=== PATIENT | male | born 1980 | race Caucasian/White ===

== ENCOUNTER 2017-06-16 17:39 | Emergency (ER) | payer SELFPAY ==
[2014-06-20 16:54] VITALS: BP 119/57
== END 2017-06-16 17:40 | disposition left against medical advice (07) ==
LOC: ER 17:39
DX: S40.862A Insect bite (nonvenomous) of left upper arm, initial encounter (principal); Z53.21 Procedure and treatment not carried out due to patient leaving prior to being seen by health care provider; W57.XXXA Bitten or stung by nonvenomous insect and other nonvenomous arthropods, initial encounter; Y93.89 Activity, other specified; Y92.89 Other specified places as the place of occurrence of the external cause; Y99.8 Other external cause status

== ENCOUNTER 2018-08-22 08:40 | Emergency (ER) | payer SELFPAY ==
[~2018-08-22] VITALS: Ht 172.7 cm; Wt 74.8 kg
--- NOTE | 2018-08-22 09:11 | PHYS DOC ---
Past Medical History Past Medical History: No Pertinent History, CVA, [place] Past Surgical History: No Surgical History Alcohol Use: None Drug Use: None Adult General Chief Complaint Chief Complaint: RIB PAIN HPI HPI Patient is a 38 year old male with history of [place], CVA with left sided weakness who presents today complaining of bilateral rib pain for 2-3 weeks. Patient states his homeless and is very agitated right now. He is not giving us much information. He keeps demanding with give him a blanket right now. We are to coming down in the form give him a blanket as soon as we figure out what we can do for him. He is not giving us much information. A lot of information about getting is coming from the significant other in the room. Patient also has history of smoking. Review of Systems Review of Systems Constitutional: Denies fever or chills [] Eyes: Denies change in visual acuity, redness, or eye pain [] HENT: Denies nasal congestion or sore throat [] Respiratory: Reports bilateral rib pain. Denies cough or shortness of breath [] Cardiovascular: No additional information not addressed in HPI [] GI: Denies abdominal pain, nausea, vomiting, bloody stools or diarrhea [] : Denies dysuria or hematuria [] Musculoskeletal: Denies back pain or joint pain [] Integument: Denies rash or skin lesions [] Neurologic: Denies headache, focal weakness or sensory changes [] All other systems were reviewed and found to be within normal limits, except as documented in this note. Current Medications Current Medications Current Medications Medications (Trade) Dose Ordered Sig/[facility] Start Time Stop Time Status Last Admin Dose Admin Aspirin (Jayla Aspirin) 325 mg 1X ONCE 08/22/18 09:15 08/22/18 09:16 DC 08/22/18 09:15 325 MG Cyclobenzaprine HCl (Flexeril) 10 mg 1X ONCE 08/22/18 09:15 08/22/18 09:16 DC 08/22/18 09:15 10 MG Allergies Allergies Allergies Coded Allergies Type Severity Reaction Last Updated Verified Penicillins Allergy Intermediate 08/22/18 Yes morphine Allergy Intermediate 08/22/18 Yes Physical Exam Physical Exam Constitutional: Well developed, well nourished, no acute distress, non-toxic appearance. [] HENT: Normocephalic, atraumatic, bilateral external ears normal, oropharynx moist, no oral exudates, nose normal. [] Eyes: PERRLA, EOMI, conjunctiva normal, no discharge. [] Neck: Normal range of motion, no tenderness, supple, no stridor. [] Cardiovascular: Old healed surgical incision noted midline chest. Heart rate regular rhythm, no murmur [] Lungs & Thorax: Bilateral breath sounds clear to auscultation, reproducible pain on palpation of bilateral ribs diffusely. Abdomen: Bowel sounds normal, soft, no tenderness, no masses, no pulsatile masses. [] Skin: Warm, dry, no erythema, no rash. [] Back: No tenderness, no CVA tenderness. [] Extremities: No tenderness, no cyanosis, no clubbing, ROM intact, no edema. Slight weakness noted on the left upper extremity from a previous stroke Neurologic: Alert and oriented X 3, normal motor function, normal sensory function, no focal deficits noted. [] Psychologic: Affect normal, judgement normal, mood normal. [] Current Patient Data Vital Signs Vital Signs Date Time Temp Pulse Resp B/P (MAP) Pulse Ox O2 Delivery O2 Flow Rate FiO2 08/22/18 09:50 69 18 110/60 (77) 99 Room Air 08/22/18 08:50 97.6 97.6 Lab Values Laboratory Tests Test 08/22/18 09:20 08/22/18 11:33 White Blood Count 6.5 x10^3/uL (4.0-11.0) Red Blood Count 5.04 x10^6/uL (4.30-5.70) Hemoglobin 15.8 g/dL (13.0-17.5) Hematocrit 46.6 % (39.0-53.0) Mean Corpuscular Volume 93 fL (79-100) Mean Corpuscular Hemoglobin 31 pg (25-35) Mean Corpuscular Hemoglobin Concent 34 g/dL (31-37) Red Cell Distribution Width 14.4 % (11.5-14.5) Platelet Count 240 x10^3/uL (140-400) Neutrophils (%) (Auto) 64 % (31-73) Lymphocytes (%) (Auto) 22 % (24-48) L Monocytes (%) (Auto) 6 % (0-9) Eosinophils (%) (Auto) 7 % (0-3) H Basophils (%) (Auto) 1 % (0-3) Neutrophils # (Auto) 4.2 x10^3uL (1.8-7.7) Lymphocytes # (Auto) 1.5 x10^3/uL (1.0-4.8) Monocytes # (Auto) 0.4 x10^3/uL (0.0-1.1) Eosinophils # (Auto) 0.4 x10^3/uL (0.0-0.7) Basophils # (Auto) 0.1 x10^3/uL (0.0-0.2) Sodium Level 142 mmol/L (136-145) Potassium Level 4.0 mmol/L (3.5-5.1) Chloride Level 103 mmol/L (98-107) Carbon Dioxide Level 32 mmol/L (21-32) Anion Gap 7 (6-14) Blood Urea Nitrogen 9 mg/dL (8-26) Creatinine 1.0 mg/dL (0.7-1.3) Estimated GFR (Cockcroft-Gault) 82.8 BUN/Creatinine Ratio 9 (6-20) Glucose Level 74 mg/dL (70-99) Calcium Level 9.1 mg/dL (8.5-10.1) Magnesium Level 1.9 mg/dL (1.8-2.4) Total Bilirubin 0.2 mg/dL (0.2-1.0) Aspartate Amino Transferase (AST) 14 U/L (15-37) L Alanine Aminotransferase (ALT) 17 U/L (16-63) Alkaline Phosphatase 62 U/L (46-116) Troponin I Quantitative < 0.017 ng/mL (0.000-0.055) BC-Ubs-Y-Type Natriuretic Peptide 265 pg/mL (0-124) H Total Protein 7.1 g/dL (6.4-8.2) Albumin 3.5 g/dL (3.4-5.0) Albumin/Globulin Ratio 1.0 (1.0-1.7) Ethyl Alcohol Level < 10 mg/dL (0-10) Urine Opiates Screen Neg (NEG) Urine Methadone Screen Neg (NEG) Urine Barbiturates Neg (NEG) Urine Phencyclidine Screen Neg (NEG) Urine Amphetamine/Methamphetamine Pos (NEG) Urine Benzodiazepines Screen Neg (NEG) Urine Cocaine Screen Neg (NEG) Urine Cannabinoids Screen Pos (NEG) Urine Ethyl Alcohol Neg (NEG) Laboratory Tests 08/22/18 09:20 Laboratory Tests 08/22/18 09:20 EKG EKG 09:[address] Rivas, sinus rhythm heart rate 63 no STEMI Radiology/Procedures Radiology/Procedures []PROCEDURE: CHEST PA & LATERAL CHEST PA LATERAL History: Bilateral rib pain, no known injury Comparison: July 20, 2009 Findings: 2 views of the chest are submitted. There has been interval median sternotomy, fractures of the most superior 2 wires. There is no lobar consolidation, pleural fluid, pneumothorax. Heart size is within normal limits. Impression: 1. No acute radiographic abnormality is identified. There has been a median sternotomy, fractures of the most superior 2 wires. Electronically signed by: Ariana Singer MD (08/22/2018 10:13 AM) [id number] DICTATED and SIGNED BY: ARIANA SINGER MD DATE: 08/22/18 1011 Course & Med Decision Making Course & Med Decision Making Pertinent Labs and Imaging studies reviewed. (See chart for details) This is a 38-year-old male patient presented to the ED today with complaints of rib pain for 2-3 weeks. See history of present illness. Patient has been very mean and had to work with. Chest x-ray, EKG, labs are negative for any acute findings. Urine drug screen noted for meth and marijuana. Patient was discharged at home. Instructed to continue taking aspirin. Discharged with cyclobenzaprine. Encouraged to consider smoking cessation. Provided [employer] driver and PCP for follow-up. Dragon Disclaimer Dragon Disclaimer This electronic medical record was generated, in whole or in part, using a voice recognition dictation system. Departure Departure Impression: Primary Impression: Rib pain on left side Additional Impression: Rib pain on right side Disposition: HOME, SELF-CARE Condition: STABLE Referrals: UNKNOWN PCP NAME (PCP) SHELBY VELEZ MD Follow-up in 1-2 weeks Patient Instructions: Musculoskeletal Pain Additional Instructions: You were evaluated in the emergency room for rib pain. Follow-up with the provided [employer] driver in 1-2 weeks. Continue taking aspirin. Take the prescribed medications as needed for pain. Scripts Cyclobenzaprine Hcl (CYCLOBENZAPRINE HCL) 10 Mg Tablet 1 TAB PO TID, #30 TAB Prov: DIOGENESLEW METAL SPRAYER 08/22/18 Problem Qualifiers MUTUNGA,LEW METAL SPRAYER Aug 22, 2018 09:11
[2018-08-22] MEDS ORDERED: ASPIRIN 325 MG TABLET PO ONE (09:15)
[2018-08-22] MEDS ORDERED: CYCLOBENZAPRINE 10 MG TABLET. PO ONE (09:15)
--- NOTE | 2018-08-22 09:27 | EKG ---
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
[2018-08-22 09:52] LABS: CALCIUM 9.1 mg/dL (8.5-10.1); GFR 82.8
[2018-08-22 09:56] LABS: ALBUMIN 3.5 g/dL (3.4-5.0); MAGNESIUM 1.9 mg/dL (1.8-2.4); TOTAL BILIRUBIN 0.2 mg/dL (0.2-1.0); TOTAL PROTEIN 7.1 g/dL (6.4-8.2)
[2018-08-22 09:58] LABS: BASO # 0.1 x10^3/uL (0.0-0.2); BASO % 1 % (0-3); EOS # 0.4 x10^3/uL (0.0-0.7); EOS % 7 % (0-3); HEMATOCRIT 46.6 % (39.0-53.0); HEMOGLOBIN 15.8 g/dL (13.0-17.5); LYMPH # 1.5 x10^3/uL (1.0-4.8); LYMPH % 22 % (24-48); MEAN CORPUSCULAR HEMOGLOBIN 31 pg (25-35); MEAN CORPUSCULAR HGB CONC 34 g/dL (31-37); MEAN CORPUSCULAR VOLUME 93 fL (79-100); MONO # 0.4 x10^3/uL (0.0-1.1); MONO % 6 % (0-9); NEUT # 4.2 x10^3uL (1.8-7.7); NEUT % 64 % (31-73); PLATELET COUNT 240 x10^3/uL (140-400); RED BLOOD COUNT 5.04 x10^6/uL (4.30-5.70); RED CELL DISTRIBUTION WIDTH 14.4 % (11.5-14.5); WHITE BLOOD COUNT 6.5 x10^3/uL (4.0-11.0)
--- NOTE | 2018-08-22 10:16 | RAD ---
CHEST PA LATERAL History: Bilateral rib pain, no known injury Comparison: July 20, 2009 Findings: 2 views of the chest are submitted. There has been interval median sternotomy, fractures of the most superior 2 wires. There is no lobar consolidation, pleural fluid, pneumothorax. Heart size is within normal limits. Impression: 1. No acute radiographic abnormality is identified. There has been a median sternotomy, fractures of the most superior 2 wires. Electronically signed by: Kameron Villanueva MD (08/22/2018 10:13 AM) [id number]
[2018-08-22 11:44] LABS: BILIRUBIN,URINE NEGATIVE (NEG); CLARITY,URINE CLEAR; COLOR,URINE YELLOW; NITRITE,URINE NEGATIVE (NEG); PH,URINE 5.5; PROTEIN,URINE NEGATIVE (NEG-TRACE); UROBILINOGEN,URINE 0.2 mg/dL (0.2 mg/dL)
[2018-08-22 11:50] VITALS: BP 113/64
[2018-08-22 11:59] LABS: AMPHETAMINE/METHAMPHETAMINE POS (NEG); BARBITURATES NEG (NEG); BENZODIAZEPINES NEG (NEG); CANNABINOIDS POS (NEG); COCAINE NEG (NEG); METHADONE NEG (NEG); OPIATES NEG (NEG); PHENCYCLIDINE NEG (NEG)
[2018-08-22 12:05] LABS: RBC,URINE OCC /HPF (0-2)
[2018-08-22 12:06] LABS: BACTERIA,URINE 0 /HPF (0-FEW); SQUAMOUS EPITHELIAL CELL,UR OCC /LPF; WBC,URINE OCC /HPF (0-4)
[2018-08-22] MEDS ORDERED: CYCL10TA2 PO (12:10)
== END 2018-08-22 12:15 | disposition home or self-care (01) ==
LOC: ER 08:40
DX: R07.81 Pleurodynia (principal); F15.90 Other stimulant use, unspecified, uncomplicated; I25.2 Old myocardial infarction; F12.90 Cannabis use, unspecified, uncomplicated; Z87.891 Personal history of nicotine dependence; Z86.73 Personal history of transient ischemic attack (TIA), and cerebral infarction without residual deficits; Z88.0 Allergy status to penicillin; Z88.5 Allergy status to narcotic agent
CPT/HCPCS: 36415; 71046; 80053; 80307; 81001; 83735; 83880; 84484; 85025; 93005; 99285; G0480